=== PATIENT | male | born 1995 | race Caucasian/White ===

== ENCOUNTER 2017-12-20 14:48 | Emergency (ER) | payer MEDICAID, OTHER ==
[2017-12-20 15:40] LABS: ABSOLUTE BASOPHILS # (AUTO) 0.1 10^3/uL (0.0-0.2); ABSOLUTE EOSINOPHILS # (AUTO) 0.2 10^3/uL (0.0-0.6); ABSOLUTE LYMPHOCYTES (AUTO) 2.8 10^3/uL (0.5-4.7); ABSOLUTE MONOCYTES (AUTO) 0.7 10^3/uL (0.1-1.4); ABSOLUTE NEUT (AUTO) 8.7 10^3/uL (1.7-8.2); EOSINOPHILS % (AUTO) 1.8 % (0-6); HEMATOCRIT 48.9 % (37.9-51.0); HEMOGLOBIN 17.1 g/dL (13.5-17.0); LYMPHOCYTES % (AUTO) 22.4 % (13-45); MEAN CORPUSCULAR HGB CONC 34.9 g/dL (32.0-36.0); MEAN CORPUSCULAR VOLUME 92 fl (80-97); MONOCYTES % (AUTO) 5.7 % (3-13); PLATELET COUNT 285 10^3/uL (150-450); RED BLOOD COUNT 5.33 10^6/uL (4.35-5.55); SEGMENTED NEUTROPHILS % (AUTO) 69.1 % (42-78); TOTAL CELLS COUNTED % (AUTO) 100 %; WHITE BLOOD COUNT 12.5 10^3/uL (4.0-10.5)
[2017-12-20 15:53] LABS: APPEARANCE,URINE CLEAR; BILIRUBIN,URINE NEGATIVE (NEGATIVE); COLOR,URINE YELLOW; GLUCOSE, URINE NEGATIVE (NEGATIVE); KETONES,URINE TRACE mg/dL (NEGATIVE); LEUKOCYTE ESTERASE,URINE NEGATIVE (NEGATIVE); NITRITE,URINE NEGATIVE (NEGATIVE); PROTEIN,URINE 100 mg/dL (NEGATIVE); URINE SPECIFIC GRAVITY 1.029
[2017-12-20 15:57] LABS: ALANINE AMINOTRANSFERASE 85 U/L (21-72); ALKALINE PHOSPHATASE 107 U/L (38-126); ANION GAP 14 (5-19); ASPARTATE AMINO TRANSFERASE 66 U/L (17-59); BILIRUBIN,DIRECT 0.4 mg/dL (0.0-0.4); BILIRUBIN,TOTAL 0.7 mg/dL (0.2-1.3); BLOOD UREA NITROGEN 11 mg/dL (7-20); CALCIUM 10.3 mg/dL (8.4-10.2); CARBON DIOXIDE 28 mmol/L (22-30); CHLORIDE 102 mmol/L (98-107); GLUCOSE 113 mg/dL (75-110); POTASSIUM 4.1 mmol/L (3.6-5.0); SODIUM 143.7 mmol/L (137-145); TOTAL PROTEIN 7.6 g/dL (6.3-8.2)
[2017-12-20] MEDS ORDERED: NORMAL SALINE 1000 ML 1,000 ML IV ONE (16:03)
[2017-12-20] MEDS ORDERED: MORPHINE SULFATE 10 MG/ML INJ IV ONE (16:04)
--- NOTE | 2017-12-20 16:07 | ER Document Report ---
ED GI/ - General Chief Complaint: Flank Pain Stated Complaint: SIDE PAIN/NAUSEA Time Seen by Provider: 12/20/17 15:16 Mode of Arrival: Ambulatory Information source: Patient Notes: Patient presents complaining of right lateral side pain for the past 4 days. Patient states that he feels this area is swollen and he has noticed some bruising to this area. Patient reports nausea but denies any vomiting or diarrhea. Patient denies any urinary symptoms or fever. Patient denies any injury to his side. Patient states pain is improved whenever he is standing. TRAVEL OUTSIDE OF THE [place] IN LAST 30 DAYS: No - HPI Patient complains to provider of: Abdominal pain Onset: Other - 4 days Timing/Duration: Persistent Quality of pain: Sharp Pain Level: 5 Location: Other - Right lateral side Associated symptoms: Nausea. denies: Diarrhea, Fever, Vomiting Exacerbated by: Denies Relieved by: Denies Similar symptoms previously: No Recently seen / treated by doctor: No - Related Data Allergies/Adverse Reactions: amoxicillin [Amoxicillin] Allergy (Verified 12/20/17 14:53) cefaclor [From Ceclor] Allergy (Verified 12/20/17 14:53) Penicillins Allergy (Verified 12/20/17 14:53) pseudoephedrine HCl [From Actifed] Allergy (Verified 12/20/17 14:53) triprolidine HCl [From Actifed] Allergy (Verified 12/20/17 14:53) Past Medical History - General Information source: Patient - Social History Smoking Status: Current Every Day Smoker Chew tobacco use (# tins/day): Yes Smoking Education Provided: Yes Frequency of alcohol use: Occasional Drug Abuse: None Family History: None Patient has suicidal ideation: No Patient has homicidal ideation: No Renal/ Medical History: Denies: Hx Peritoneal Dialysis Musculoskeltal Medical History: Reports Hx Musculoskeletal Trauma Traumatic Medical History: Reports: Hx Fractures Past Surgical History: Reports: Hx Inguinal Hernia, Hx Orthopedic Surgery - lt arm, knee - Immunizations Immunizations up to date: Yes Hx Diphtheria, Pertussis, Tetanus Vaccination: Yes Review of Systems - Review of Systems Constitutional: No symptoms reported. denies: Fever, Recent illness EENT: No symptoms reported Cardiovascular: No symptoms reported. denies: Chest pain Respiratory: No symptoms reported. denies: Cough, Short of breath Gastrointestinal: Abdominal pain - Lateral side, Nausea. denies: Diarrhea, Vomiting Genitourinary: Flank pain - Right lateral side Male Genitourinary: No symptoms reported Musculoskeletal: No symptoms reported Skin: Change in color - Bruising to the right side Hematologic/Lymphatic: No symptoms reported Neurological/Psychological: No symptoms reported Physical Exam - Vital signs Vitals: Temp Pulse Resp BP Pulse Ox 98.3 F 118 H 17 172/105 H 98 12/20/17 14:52 12/20/17 14:52 12/20/17 14:52 12/20/17 14:52 12/20/17 14:52 - General General appearance: Appears well, Alert In distress: None - HEENT Head: Normocephalic Eyes: Normal Nasal: Normal Mouth/Lips: Normal Pharynx: Normal Neck: Normal - Respiratory Respiratory status: No respiratory distress Chest status: Nontender Breath sounds: Normal. No: Rales, Rhonchi, Stridor, Wheezing Chest palpation: Normal - Cardiovascular Rhythm: Tachycardia Heart sounds: S1 appreciated, S2 appreciated Murmur: No - Abdominal Inspection: Normal Distension: No distension Bowel sounds: Normal Tenderness: Tender - Right lateral side tenderness Organomegaly: No organomegaly - Back Back: Normal. No: CVA tenderness - Extremities General upper extremity: Normal inspection, Nontender, Normal strength General lower extremity: Normal inspection, Nontender, Normal strength - Neurological Neuro grossly intact: Yes Cognition: Normal [place] Coma Scale Eye Opening: Spontaneous Iván Coma Scale Verbal: Oriented Iván Coma Scale Motor: Obeys Commands Iván Coma Scale Total: 15 - Psychological Associated symptoms: Normal affect, Normal mood - Skin Skin Temperature: Warm Skin Moisture: Dry Skin Color: Ecchymosis - Faint area of ecchymosis to right lateral side Course - Re-evaluation Re-evalutation: 12/20/17 17:49 Patient states that pain is much improved after pain medication. Patient's vital signs have improved, patient no longer tachycardic, heart rate 98. Patient denies any vomiting or diarrhea. Patient without fever at home. Consulted with Dr. Tan regarding patient presentation. Recommends having patient follow up with GI as an outpatient with concern about possible inflammatory bowel disease. Patient without any fever or diarrhea here so recommends treating for musculoskeletal pain at this time. Patient presents with abdominal pain without signs of peritonitis or other life-threatening or serious etiology. Patient appears stable for discharge and has been instructed to return immediately if the symptoms worsen in any way, or in 8-12 hours if not improved for reevaluation. The patient has been instructed to return if the symptoms worsen or change in any way. - Vital Signs Vital signs: Temp Pulse Resp BP Pulse Ox 98.0 F 118 H 15 124/80 98 12/20/17 17:46 12/20/17 14:52 12/20/17 17:46 12/20/17 17:46 12/20/17 17:46 - Laboratory Result Diagrams: 12/20/17 15:25 12/20/17 15:25 Laboratory results interpreted by me: 12/20/17 12/20/17 12/20/17 15:25 15:25 15:25 WBC 12.5 H Hgb 17.1 H Absolute Neutrophils 8.7 H VBG pH Glucose 113 H Calcium 10.3 H AST 66 H ALT 85 H Urine Protein 100 H Urine Ketones TRACE H Urine Urobilinogen 4.0 H Urine Ascorbic Acid 40 H 12/20/17 16:05 WBC Hgb Absolute Neutrophils VBG pH 7.43 H Glucose Calcium AST ALT Urine Protein Urine Ketones Urine Urobilinogen Urine Ascorbic Acid 12/20/17 17:49 Labs- Entire Visit 12/20/17 12/20/17 12/20/17 15:25 15:25 15:25 WBC 12.5 H RBC 5.33 Hgb 17.1 H Hct 48.9 MCV 92 MCH 32.0 MCHC 34.9 RDW 13.0 Plt Count 285 Seg Neutrophils % 69.1 Lymphocytes % 22.4 Monocytes % 5.7 Eosinophils % 1.8 Basophils % 1.0 Absolute Neutrophils 8.7 H Absolute Lymphocytes 2.8 Absolute Monocytes 0.7 Absolute Eosinophils 0.2 Absolute Basophils 0.1 PT INR VBG pH VBG pCO2 VBG HCO3 VBG Base Excess Sodium 143.7 Potassium 4.1 Chloride 102 Carbon Dioxide 28 Anion Gap 14 BUN 11 Creatinine 0.90 Est GFR ( Amer) > 60 Est GFR (Non-Af Amer) > 60 Glucose 113 H Lactic Acid Calcium 10.3 H Total Bilirubin 0.7 Direct Bilirubin 0.4 Neonat Total Bilirubin Not Reportable Neonat Direct Bilirubin Not Reportable Neonat Indirect Bili Not Reportable AST 66 H ALT 85 H Alkaline Phosphatase 107 Total Protein 7.6 Albumin 5.0 Urine Color YELLOW Urine Appearance CLEAR Urine pH 6.0 Ur Specific [place] 1.029 Urine Protein 100 H Urine Glucose (UA) NEGATIVE Urine Ketones TRACE H Urine Blood NEGATIVE Urine Nitrite NEGATIVE Urine Bilirubin NEGATIVE Urine Urobilinogen 4.0 H Ur Leukocyte Esterase NEGATIVE Urine WBC (Auto) 1 Urine RBC (Auto) 2 Urine Bacteria (Auto) TRACE Urine Mucus (Auto) FEW Urine Ascorbic Acid 40 H 12/20/17 12/20/17 12/20/17 16:05 16:05 16:05 WBC RBC Hgb Hct MCV MCH MCHC RDW Plt Count Seg Neutrophils % Lymphocytes % Monocytes % Eosinophils % Basophils % Absolute Neutrophils Absolute Lymphocytes Absolute Monocytes Absolute Eosinophils Absolute Basophils PT 13.2 INR 0.95 VBG pH 7.43 H VBG pCO2 40.1 VBG HCO3 25.7 VBG Base Excess 1.3 Sodium Potassium Chloride Carbon Dioxide Anion Gap BUN Creatinine Est GFR ( Amer) Est GFR (Non-Af Amer) Glucose Lactic Acid 1.4 Calcium Total Bilirubin Direct Bilirubin Neonat Total Bilirubin Neonat Direct Bilirubin Neonat Indirect Bili AST ALT Alkaline Phosphatase Total Protein Albumin Urine Color Urine Appearance Urine pH Ur Specific [place] Urine Protein Urine Glucose (UA) Urine Ketones Urine Blood Urine Nitrite Urine Bilirubin Urine Urobilinogen Ur Leukocyte Esterase Urine WBC (Auto) Urine RBC (Auto) Urine Bacteria (Auto) Urine Mucus (Auto) Urine Ascorbic Acid - Diagnostic Test Radiology reviewed: Reports reviewed Discharge - Discharge Clinical Impression: RIGHT LATERAL SIDE PAIN, Elevated liver function tests Condition: Stable Disposition: HOME, SELF-CARE Instructions: Abdominal Pain ([facility]), Oral Narcotic Medication ([facility]) Additional Instructions: Return immediately for any new or worsening symptoms Followup with your primary care provider, call tomorrow to make a followup appointment Follow-up with a ct manager for further evaluation. It is possible that he may have inflammatory bowel disease. If he started to have fever, diarrhea or worsening symptoms return for further evaluation. Your liver function test was elevated today. Have your primary doctor recheck this in about a week. Prescriptions: Oxycodone HCl [Oxy-Ir 5 mg Tablet] 5 mg PO Q6 PRN #10 tab PRN Reason: Forms: Smoking Cessation Education Referrals: [facility] [Provider Group] - Follow up as needed AMELIA GARCÍA MD [ACTIVE STAFF] - Follow up in [address] [facility] [Provider Group] - Follow up tomorrow
[2017-12-20 16:38] LABS: VENOUS BLOOD BASE EXCESS 1.3 mmol/L; VENOUS BLOOD HCO3 25.7 mmol/L (20-32); VENOUS BLOOD PCO2 40.1 mmHg (35-63); VENOUS BLOOD PH 7.43 (7.30-7.42)
--- NOTE | 2017-12-20 17:06 | RADIOLOGY REPORT (SQ) ---
EXAM DESCRIPTION: CT ABD/PELVIS WITH IV ONLY COMPLETED DATE/TIME: 12/20/2017 4:49 pm REASON FOR STUDY: right lat side pain COMPARISON: None. TECHNIQUE: CT scan of the abdomen and pelvis performed using helical scanning technique with dynamic intravenous contrast injection. No oral contrast. Images reviewed with lung, soft tissue, and bone windows. Reconstructed coronal and sagittal MPR images reviewed. Delayed images for evaluation of the urinary system also acquired. All images stored on PACS. All CT scanners at this facility use dose modulation, iterative reconstruction, and/or weight based d osing when appropriate to reduce radiation dose to as low as reasonably achievable (ALARA). [facility]: Dose Right [facility]: CareDose [facility]: Dose Right [facility]: Teradose 4D [facility]: Metconnex CONTRAST TYPE AND DOSE: contrast/concentration: Isovue 370.00 mg/ml; Total Contrast Delivered: 93.0 ml; Total Saline Delivered: 67.0 ml RENAL FUNCTION: BUN 11 creatinine 0.9 RADIATION DOSE: CT Rad equipment meets quality standard of care and radiation dose reduction techniq ues were employed. CTDIvol: 8.9 - 12.9 mGy. DLP: 1153 mGy-cm.. LIMITATIONS: None. FINDINGS: LOWER CHEST: No significant findings. No nodules or infiltrates. LIVER: Normal size. No masses. No dilated ducts. SPLEEN: Normal size. No focal lesions. PANCREAS: No masses. No significant calcifications. No adjacent inflammation or peripancreatic fluid collections. Pancreatic duct not dilated. GALLBLADDER: No identified stones by CT criteria. No inflammatory changes to suggest cholecystitis. ADRENAL GLANDS: No significant masses or asymmetry. RIGHT KIDNEY AND URETER: No solid masses. No significant calcifications. No hydronephrosis or hyd roureter. LEFT KIDNEY AND URETER: No solid masses. No significant calcifications. No hydronephrosis or hydr oureter. AORTA AND VESSELS: No aneurysm. No dissection. Renal arteries, SMA, celiac without stenosis. RETROPERITONEUM: No retroperitoneal adenopathy, hemorrhage or masses. BOWEL AND PERITONEAL CAVITY: Questionable thickening of the left colon versus mere nondistention. APPENDIX: Normal. PELVIS: No mass. No free fluid. Normal bladder. ABDOMINAL WALL: No masses. No hernias. BONES: No significant or acute findings. OTHER: No other significant finding. IMPRESSION: Questionable thickening of the wall of the left colon. Is there clinical history of or clinical evidence of inflammatory bowel disease? TECHNICAL DOCUMENTATION: JOB ID: [id number] Quality ID # [id number]: Final reports with documentation of one or more dose reduction techniques (e.g., Au tomated exposure control, adjustment of the mA and/or kV according to patient size, use of iterative reconstruction technique) 2010 [employer]- All Rights Reserved Reading location - IP/workstation name: [email or web address]
[2017-12-20 17:31] LABS: INTERNATIONAL RATION (INR) 0.95; PROTHROMBIN TIME 13.2 SEC (11.4-15.4)
[2017-12-20 18:01] VITALS: BP 124/80
--- NOTE | 2017-12-20 22:43 | EKG REPORT ---
SEVERITY:- BORDERLINE ECG - SINUS RHYTHM BORDERLINE RIGHT AXIS DEVIATION BORDERLINE Q WAVES IN INFERIOR LEADS INFERIOR Q WAVES, PROBABLY NORMAL VARIATION : Confirmed by: Huma Castaneda 20-Dec-2017 22:42:28
== END 2017-12-20 18:00 | disposition home or self-care (01) ==
LOC: ER 14:48
DX: R10.9 Unspecified abdominal pain (principal); R79.89 Other specified abnormal findings of blood chemistry; R11.0 Nausea; F17.200 Nicotine dependence, unspecified, uncomplicated
CPT/HCPCS: 93005; 99284; 96361; 96374; 36415; 87040; 87086; 85025; 85610; 80053; 81001; 82803; 83605; 74177; 93010; J2270; J7030

== ENCOUNTER 2018-05-25 17:22 | Emergency (ER) | payer OTHER, MEDICAID ==
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
[2018-05-25 19:31] VITALS: BP 150/85
== END 2018-05-25 19:31 | disposition home or self-care (01) ==
LOC: ER 17:22
DX: S89.91XA Unspecified injury of right lower leg, initial encounter (principal); S81.011A Laceration without foreign body, right knee, initial encounter; L76.82 Other postprocedural complications of skin and subcutaneous tissue; L53.9 Erythematous condition, unspecified; V49.9XXA Car occupant (driver) (passenger) injured in unspecified traffic accident, initial encounter; F17.200 Nicotine dependence, unspecified, uncomplicated
CPT/HCPCS: 99284